=== PATIENT | female | born 1975 | race Caucasian/White ===

== ENCOUNTER 2016-11-11 11:50 | Emergency (ER) | payer OTHER ==
--- NOTE | 2016-11-11 12:22 | PDOC ---
History of Present Illness - General Chief Complaint: Sore Throat Stated Complaint: SORE THROAT & CHEST CONGESTION Time Seen by Provider: 11/11/16 12:07 - History of Present Illness Initial Comments: 11/11/16 12:19 41-year-old female with a negative past medical history She is on no medications, NKDA Patient is complaining of one-week of sore throat, low-grade fever, and swollen lymph nodes on her neck She was seen in a walk-in center 2 days ago, and was noted to have pus patches on her tonsils, but had a negative rapid strep, so she was not given antibiotics She is complaining of fever and night sweats, and a cough occasionally productive of yellowish sputum She denies earache, vomiting or diarrhea She states that she had the flu already earlier this season but recovered without sequelae Past History - Past Medical History Allergies/Adverse Reactions: Allergies Allergy/AdvReac Type Severity Reaction Status Date / Time No Known Allergies Allergy Verified 11/11/16 12:01 Home Medications: Ambulatory Orders Azithromycin [Zithromax] 250 mg PO UTDICT #6 tab 11/11/16 - Psycho/Social/Smoking Cessation Hx Anxiety: No Suicidal Ideation: No Smoking History: Former smoker Have you smoked in the past 12 months: No If you are a former smoker, when did you quit?: 2006 Information on smoking cessation initiated: No Hx Alcohol Use: Yes (OCCASIONAL) Drug/Substance Use Hx: No Substance Use Type: None Review of Systems - Review of Systems Able to Perform ROS?: Yes Comments:: 11/11/16 12:20 Review of systems is as per history of present illness and otherwise negative *Physical Exam - Vital Signs Last Vital Signs Temp Pulse Resp BP Pulse Ox 99.2 F 80 15 130/92 96 11/11/16 12:00 11/11/16 12:00 11/11/16 12:00 11/11/16 12:00 11/11/16 12:00 - Physical Exam Comments: 11/11/16 12:21 Physical exam Last Vital Signs Temp Pulse Resp BP Pulse Ox 99.2 F 80 15 130/92 96 11/11/16 12:00 11/11/16 12:00 11/11/16 12:00 11/11/16 12:00 11/11/16 12:00 GENERAL: The patient is awake, alert, and fully oriented, and in no apparent distress. HEAD: Normal with no signs of trauma. EYES: sclera anicteric, conjunctiva are normal. ENT: TMs normal, nares patent, There is bilateral exudative tonsillitis noted NECK: Normal range of motion, supple with shotty bilateral adenopathy LUNGS: Breath sounds equal, clear to auscultation bilaterally. No wheezes, and no crackles. HEART: Regular rate and rhythm, normal S1 and S2 without murmur, rub or gallop. ABDOMEN: Soft, nontender, normoactive bowel sounds. No guarding, no rebound. No masses appreciated. EXTREMITIES: Normal range of motion, no edema. No clubbing or cyanosis. No cords, erythema, or tenderness. NEUROLOGICAL: Cranial nerves II through XII grossly intact. Normal speech, normal gait. PSYCH: Normal mood, normal affect. SKIN: Warm, Dry, normal turgor, no rashes or lesions noted. Medical Decision Making - Medical Decision Making 11/11/16 12:44 Bilateral exudative tonsillitis with adenopathy Cough with some sputum Would treat with Z-Aj regardless of the results of the rapid strep *DC/Admit/Observation/Transfer Diagnosis at time of Disposition: Exudative tonsillitis, Cough - Discharge Dispostion Disposition: HOME Condition at time of disposition: Stable - Referrals Referrals: Lien Ellis [Primary Care Provider] - Call tomorrow - Patient Instructions Printed Discharge Instructions: DI for Pharyngitis/Tonsillopharyngitis -- Adult Additional Instructions: Zithromax Z-Aj-take as directed-start today Increase fluid intake Tylenol or Motrin for discomfort Followup with your primary care physician in 24-48 hours Return immediately if you worsen in any way Take your medications as directed - Post Discharge Activity Work/School Note: Back to Work
[2016-11-11 12:23] VITALS: BP 130/92; PULSE 80; TEMP 99.2; BMI 26.9
== END 2016-11-11 13:13 | disposition home or self-care (01) ==
LOC: FER 11:50
DX: J03.80 Acute tonsillitis due to other specified organisms (principal); R05 Cough; Z87.891 Personal history of nicotine dependence
CPT/HCPCS: 87070; 87430; 99281-25

== ENCOUNTER 2019-06-08 18:55 | Emergency (ER) | payer OTHER ==
[2019-06-08 19:15] VITALS: TEMP 98.2; BMI 28.3
[2019-06-08 20:20] LABS: BASO % 0.7 % (0-2.0); EOS % 1.9 % (0-4.5); HEMATOCRIT 40.7 % (32.4-45.2); HEMOGLOBIN 13.1 GM/dl (10.7-15.3); LYMPH % 35.1 % (8-40); MCH 28.5 pg (25.7-33.7); MCHC 32.2 g/dl (32.0-36.0); MEAN CELL VOLUME 88.3 fl (80-96); MEAN PLT VOLUME 9.2 fl (7.5-11.1); NEUT % 56.3 % (42.8-82.8); PLATELET COUNT 337 K/MM3 (134-434); RDW 15.5 % (11.6-15.6); WHITE BLOOD COUNT 8.4 K/mm3 (4.0-10.8)
[2019-06-08 20:32] LABS: ALBUMIN 4.2 g/dl (3.4-5.0); BILIRUBIN,TOTAL 0.3 mg/dl (0.2-1); CREATININE 0.7 mg/dl (0.55-1.3); POTASSIUM 3.6 mmol/L (3.5-5.1); TOT PROT 7.4 g/dl (6.4-8.2)
[2019-06-08 21:20] VITALS: BP 127/92; PULSE 72
[2019-06-08 22:37] LABS: EPITHELIAL CELLS FEW /hpf
--- NOTE | 2019-06-09 00:31 | PDOC ---
Documentation entered by Marycruz Parra SCRIBE, acting as scribe for Mimi Juarez MD. Mimi Juarez MD: This documentation has been prepared by the derrekeFidel Aiswarya, SCRIBE, under my direction and personally reviewed by me in its entirety. I confirm that the documentation accurately reflects all work, treatment, procedures, and medical decision making performed by me. History of Present Illness - General Chief Complaint: Chest Pain Stated Complaint: CHEST & LEFT ARM PAIN Time Seen by Provider: 06/08/19 19:15 History Source: Patient Exam Limitations: No Limitations - History of Present Illness Initial Comments: 06/08/19 19:55 The patient is a 59 year old female, with a significant PMH of mild anxiety, who presents to the emergency department with chest pain that began today at 2: 00 pm . Patient states she was at work when she noticed a sudden onset of intermittent non radiating left anterior chest pain and tightness. The patient states she endorses associated symptoms of nausea , sweats, intermittent coughing, and left arm pain. Symptoms resolved spontaneously prior to arrival in ER She states she is currently under a lot of stress regarding work and recovering from a "chest cold" that lasted several weeks. The patient denies shortness of breath, headache and dizziness.Denies chills, vomit, diarrhea and constipation. Denies dysuria, frequency, urgency and hematuria. Allergies: NKDA Past surgical history: None reported Social history: Drinks 1 glass of wine everyday. Denies smoking or any recreational drugs. PCP: Lien Ellis Past History - Past Medical History Allergies/Adverse Reactions: Allergies Allergy/AdvReac Type Severity Reaction Status Date / Time No Known Allergies Allergy Verified 11/11/16 12:01 Home Medications: Ambulatory Orders NK [No Known Home Medication] 06/08/19 COPD: No Psychiatric Problems: No (MILD ANXIETY) - Psycho Social/Smoking Cessation Hx Smoking History: Never smoked Have you smoked in the past 12 months: No If you are a former smoker, when did you quit?: 2006 Hx Alcohol Use: No Drug/Substance Use Hx: No Substance Use Type: None Review of Systems - Review of Systems Able to Perform ROS?: Yes Comments:: 06/08/19 19:56 GENERAL/CONSTITUTIONAL: No fever or chills. No weakness. HEAD, EYES, EARS, NOSE AND THROAT: No change in vision. No ear pain or discharge. No sore throat. CARDIOVASCULAR:+ chest pain. No shortness of breath. RESPIRATORY: +cough. No wheezing, or hemoptysis. GASTROINTESTINAL:+nausea. No vomiting, diarrhea or constipation. GENITOURINARY: No dysuria, frequency, or change in urination. MUSCULOSKELETAL: + arm pain. No joint or muscle swelling or pain. No neck or back pain. SKIN: No rash NEUROLOGIC: No headache, vertigo, loss of consciousness, or change in strength/ sensation. ENDOCRINE: No increased thirst. No abnormal weight change. HEMATOLOGIC/LYMPHATIC: No anemia, easy bleeding, or history of blood clots. ALLERGIC/IMMUNOLOGIC: No hives or skin allergy. *Physical Exam - Vital Signs Last Vital Signs Temp Pulse Resp BP Pulse Ox 98.2 F 72 15 127/92 100 06/08/19 18:56 06/08/19 21:20 06/08/19 21:20 06/08/19 21:20 06/08/19 21:20 - Physical Exam Comments: 06/08/19 19:56 GENERAL: Awake, alert, and fully oriented, in no acute distress HEAD: No signs of trauma ENT: Auricles normal inspection, hearing grossly normal, nares patent, oropharynx clear without exudates. Moist mucosa NECK: Normal ROM, supple, no lymphadenopathy, JVD, or masses LUNGS: Breath sounds equal, clear to auscultation bilaterally. No wheezes, and no crackles HEART: Regular rate and rhythm, normal S1 and S2, no murmurs, rubs or gallops ABDOMEN: Soft, nontender, normoactive bowel sounds. No guarding, no rebound. No masses EXTREMITIES: +tenderness of palpation of the left costal left anterior axillary line. Normal range of motion, no edema. No clubbing or cyanosis. No cords or erythema. NEUROLOGICAL: Cranial nerves II through XII grossly intact. Normal speech, normal gait SKIN: Warm, Dry, normal turgor, no rashes or lesions noted. Heart Score/ECG Review - History History: Slightly suspicious - Electrocardiogram EKG: Non specific repolarization disturbance - Age Age: </= 45 - Risk Factors Risk Factors Heart Score: Yes Positive family hx of cardiac disease Based on the list above the patient has:: 1-2 risk factors - Troponin Troponin: </= normal limit - Score Heart Score - Total: 2 ED Treatment Course - LABORATORY CBC & Chemistry Diagram: 06/08/19 20:05 06/08/19 20:05 - ADDITIONAL ORDERS Additional order review: Laboratory Results 06/08/19 06/08/19 06/08/19 20:05 20:05 20:00 Sodium 135 L Potassium 3.6 Chloride 109 H Carbon Dioxide 23 Anion Gap 3 L BUN 9.0 Creatinine 0.7 Est GFR (CKD-EPI)AfAm 124.73 Est GFR (CKD-EPI)NonAf 107.62 Random Glucose 90 Calcium 9.0 Total Bilirubin 0.3 AST 17 ALT 18 Alkaline Phosphatase 55 Creatine Kinase 77 Troponin I < 0.03 Total Protein 7.4 Albumin 4.2 Urine Color Yellow Urine Appearance Clear Urine pH 6.0 Urine Protein Negative Urine Glucose (UA) Negative Urine Ketones 1+ H Urine Blood 1+ H Urine Nitrite Negative Urine Bilirubin Negative Urine Urobilinogen 0.2 Ur Leukocyte Esterase Negative Urine RBC 2-5 Urine WBC 0-2 Ur Transition Epith Cell Few Urine HCG, Qual 06/08/19 20:00 Sodium Potassium Chloride Carbon Dioxide Anion Gap BUN Creatinine Est GFR (CKD-EPI)AfAm Est GFR (CKD-EPI)NonAf Random Glucose Calcium Total Bilirubin AST ALT Alkaline Phosphatase Creatine Kinase Troponin I Total Protein Albumin Urine Color Urine Appearance Urine pH Urine Protein Urine Glucose (UA) Urine Ketones Urine Blood Urine Nitrite Urine Bilirubin Urine Urobilinogen Ur Leukocyte Esterase Urine RBC Urine WBC Ur Transition Epith Cell Urine HCG, Qual Negative 06/08/19 20:05 RBC 4.60 MCV 88.3 MCHC 32.2 RDW 15.5 MPV 9.2 Neutrophils % 56.3 Lymphocytes % 35.1 Monocytes % 6.0 Eosinophils % 1.9 Basophils % 0.7 Medical Decision Making - Medical Decision Making As noted above, this 43-year-old woman with no significant past medical history presents with episode of left-sided chest pain/left arm pain during the day today. She also experienced nausea with diaphoresis. All of the symptoms were not related to exertion or movement. Nausea and diaphoresis resolved quickly; left-sided discomfort persisted for a few hours but resolved prior to presentation. Recent history notable for productive cough for several weeks, treated by her PMD with antibiotics with gradual resolution over the last 10 days. Exam as noted Cardiac risk factors:+ family history of early cardiac disease; all other risk factors are not present including HTN/DM/HLD/smoking Twelve-lead electrocardiogram performed: Preliminary interpretation normal sinus rhythm 69 bpm; incomplete right bundle branch block present. T waves are flattened laterally but no other acute ST or T wave abnormality seen. No acute cardiac arrhythmia seen. [place] and intervals are normal Patient stated that she was told that she had "an abnormality" in her EKG by her PMD several years ago. CBC, chemistry profile, troponin, PGU/UA sent Laboratory evaluation is essentially normal. Heart score is 2 Clinical presentation most consistent with atypical chest pain. On exam, patient had tenderness of the left costal margin, possibly related to frequent coughing during her episode of bronchitis over the last few months. Today's pain may have been related to chest wall strain. Patient will be discharged with instructions to rest and avoid strenuous activity over the next few days. She should follow-up with her PMD, Dr. Ellis within the next 3 to 4 days. She should return to the ER if she has any recurrence of her chest pain/nausea Discharge - Discharge Information Problems reviewed: Yes Clinical Impression/Diagnosis: Atypical chest pain Condition: Stable Disposition: HOME - Follow up/Referral Referrals: Lien Ellis [Primary Care Provider] - 3 days - Patient Discharge Instructions Patient Printed Discharge Instructions: DI for Atypical Chest Pain Additional Instructions: rest, avoid strenuous exercise for the next several days return to ER if you have persistent nausea or severe pain Follow-up with Dr. Ellis within the next 3 to 4 days - Post Discharge Activity
--- NOTE | 2019-06-10 16:46 | EKG ---
Test Reason : Blood Pressure : / mmHG Vent. Rate : 069 BPM Atrial Rate : 069 BPM P-R Int : 128 ms QRS Dur : 098 ms QT Int : 416 ms P-R-T Axes : 018 -28 016 degrees QTc Int : 445 ms NORMAL SINUS RHYTHM INCOMPLETE RIGHT BUNDLE BRANCH BLOCK NONSPECIFIC T WAVE ABNORMALITY ABNORMAL ECG NO PREVIOUS ECGS AVAILABLE Confirmed by DANIELLE LOPEZ MD ([id number]) on 06/10/2019 4:46:10 PM Referred By: DR RUIZ Confirmed By:DANIELLE LOPEZ MD
== END 2019-06-08 21:38 | disposition home or self-care (01) ==
LOC: FER 18:55
DX: R07.89 Other chest pain (principal); F41.9 Anxiety disorder, unspecified
CPT/HCPCS: 36415; 80053; 81003; 81015; 82550; 84484; 84703; 85025; 93005; 99283-25

== ENCOUNTER 2024-01-14 10:49 | Emergency (ER) | payer BC, OTHER ==
[2024-01-14 11:01] VITALS: RESP 16; TEMP 97.6; BMI 30.2
[2024-01-14] MEDS: SODIUM CHLORIDE 0.9% 1000 ML INFUS.BAG IV ONE (11:20)
[2024-01-14] MEDS ORDERED: ACETAMINOPHEN INJECTION 100 ML IVPB ONE (11:27)
[2024-01-14] MEDS: ACETAMINOPHEN 1000 MG/100 ML BAG IVPB ONE (11:30)
[2024-01-14 11:38] LABS: HCG,QUALITATIVE URINE Negative
[2024-01-14 11:39] LABS: HEMATOCRIT 41.7 % (32.4-45.2); HEMOGLOBIN 13.2 G/dL (10.7-15.3); MCH 28.4 pg (25.7-33.7); MCHC 31.6 g/dl (32.0-36.0); MEAN CELL VOLUME 89.8 fl (80-96); MEAN PLT VOLUME 9.5 fl (7.5-11.1); PLATELET COUNT 372.6 10^3/uL (134-434); RBC 4.64 10^6/uL (3.60-5.2); WHITE BLOOD COUNT 9.8 10^3/uL (4.0-10.8)
[2024-01-14 11:42] LABS: PLATELET ESTIMATE ADEQUATE
[2024-01-14 11:48] LABS: ALBUMIN 4.4 g/dl (3.4-5.0); BILIRUBIN,TOTAL 0.4 mg/dl (0.2-1); CALCIUM 9.1 mg/dl (8.5-10.1); CREATININE 0.8 mg/dl (0.6-1.3); POTASSIUM 3.9 mmol/L (3.5-5.1); TOT PROT 6.9 g/dl (6.4-8.2)
[2024-01-14] MEDS ORDERED: cefTRIAXone SODIUM 1 GM VIAL ONE (13:14)
[2024-01-14] MEDS: CEFTRIAXONE 1 GM in DEXTROSE 5%-WATER - 100 ML IVPB ONE (13:15)
[2024-01-14 13:39] VITALS: BP 147/90; PULSE 70
== END 2024-01-14 13:55 | disposition home or self-care (01) ==
LOC: FER 10:49
PROC: 3E03329 Introduction of Other Anti-infective into Peripheral Vein, Percutaneous Approach (ICD-10-PCS; principal; 2024-01-14)
PROC: 3E033NZ Introduction of Analgesics, Hypnotics, Sedatives into Peripheral Vein, Percutaneous Approach (ICD-10-PCS; 2024-01-14)
DX: N12 Tubulo-interstitial nephritis, not specified as acute or chronic (principal); R10.9 Unspecified abdominal pain
CPT/HCPCS: 36415; 74176-TC; 80053; 81003; 81015; 84703; 85027; 87086; 99284-25; J0131

== ENCOUNTER 2024-02-08 08:40 | Emergency (ER) | payer OTHER ==
[2024-02-08] MEDS ORDERED: ACETAMINOPHEN 500 MG TABLET (FP) ONE (08:48)
[2024-02-08] MEDS ORDERED: LIDOCAINE 5% TOPICAL PATCH ONE ×3 (08:49→12:32)
[2024-02-08] MEDS ORDERED: METHOCARBAMOL 500 MG TABLET ONE (08:49)
[2024-02-08] MEDS ORDERED: KETOROLAC TROMETHAMINE 30 MG/1 ML VIAL ONE (08:49)
[2024-02-08] MEDS: LIDOCAINE 5% TOPICAL PATCH TP ONE ×2 (08:58→12:36)
[2024-02-08] MEDS: METHOCARBAMOL 500 MG TABLET PO ONE (08:59)
[2024-02-08] MEDS: KETOROLAC TROMETHAMINE 30 MG/1 ML VIAL IM ONE (08:59)
[2024-02-08] MEDS: ACETAMINOPHEN 500 MG TABLET (FP) PO ONE (09:00)
[2024-02-08] MEDS ORDERED: diazePAM 5 MG TABLET ONE (10:39)
[2024-02-08] MEDS: diazePAM 5 MG TABLET PO ONE (10:40)
[2024-02-08 11:59] VITALS: BP 147/94; PULSE 76; RESP 16; TEMP 98.4; BMI 29.3
[2024-02-08] MEDS ORDERED: LIDOCAINE PATCH REMOVAL MC ONE ×2 (22:00)
== END 2024-02-08 12:42 | disposition home or self-care (01) ==
LOC: FER 08:40
PROC: 3E0133Z Introduction of Anti-inflammatory into Subcutaneous Tissue, Percutaneous Approach (ICD-10-PCS; principal; 2024-02-08)
DX: M54.41 Lumbago with sciatica, right side (principal); G89.29 Other chronic pain
CPT/HCPCS: 73502-TC-RT-FY; 99284-25